=== PATIENT | female | born 1995 | race American Indian/Alaskan Native ===

== ENCOUNTER 2017-03-11 16:50 | Emergency (ER) | payer SELFPAY ==
[2017-03-11] MEDS ORDERED: TYLENOL ONE (16:57)
[2017-03-11] MEDS ORDERED: TYLENOL PO ONE (17:01)
--- NOTE | 2017-03-11 21:24 | Emergency Department Report ---
HPI - General Chief Complaint: Fever Time Seen by Provider: 03/11/17 20:58 - HPI HPI: Patient reports she has fever, body aches, chills and cough with congestion. She said this started yesterday morning. She was given Tylenol and triage area. Denies any chest pain. Denies any shortness of breath. Denies any nausea or vomiting. She says she took [id number]-neloapc cold and cough medication but is not helping. Generalized achiness 7 out of 10. Denies any headache or neck pain or stiffness. ED Past Medical Hx - Past Medical History Previous Medical History?: Yes Hx Asthma: Yes Additional medical history: anemia - Surgical History Past Surgical History?: No - Family History Family history: hypertension - Social History Smoking Status: Never Smoker Substance Use Type: None - Medications Home Medications: Home Medications Medication Instructions Recorded Confirmed Last Taken Type Pnv,Calcium 72/Iron,Carb/Folic 1 each PO QDAY #30 tablet 05/16/15 Unknown Rx [ Plus Iron Tablet] Ibuprofen [Motrin] 600 mg PO Q6H PRN 5 Days #20 tablet 03/11/17 Unknown Rx Oseltamivir [Tamiflu] 75 mg PO BID 5 Days #10 cap 03/11/17 Unknown Rx Promethazine HCl/Codeine 5 ml PO Q8H PRN 5 Days #75 ml 03/11/17 Unknown Rx [Promethazine-Codeine Syrup] ED Review of Systems ROS: Stated complaint: FLU SYMPTOMS Other details as noted in HPI Comment: All other systems reviewed and negative Constitutional: denies: chills, fever Eyes: denies: eye pain, eye discharge ENT: congestion. denies: ear pain, throat pain, dental pain, epistaxis Respiratory: cough. denies: orthopnea, shortness of breath, SOB with exertion, SOB at rest, stridor, wheezing Cardiovascular: denies: chest pain, palpitations, dyspnea on exertion, edema, syncope, paroxysmal nocturnal dyspnea Gastrointestinal: denies: abdominal pain, nausea, vomiting, diarrhea, constipation, hematemesis, melena, hematochezia Genitourinary: denies: urgency, dysuria, frequency, hematuria, discharge Musculoskeletal: myalgia. denies: back pain, joint swelling, arthralgia Skin: denies: rash Neurological: denies: headache, weakness, numbness, paresthesias, confusion, abnormal gait, vertigo Physical Exam - Physical Exam Vital Signs: Vital Signs 03/11/17 03/11/17 16:58 20:56 Temperature 102.9 F H 99.5 F Pulse Rate 115 H Respiratory 18 Rate Blood Pressure 105/71 O2 Sat by Pulse 98 Oximetry Vital Signs 03/11/17 03/11/17 03/11/17 16:58 20:56 22:20 Temperature 102.9 F H 99.5 F Pulse Rate 115 H 98 H Respiratory 18 100 H Rate Blood Pressure 105/71 O2 Sat by Pulse 98 Oximetry Vital Signs 03/11/17 03/11/17 03/11/17 16:58 20:56 22:20 Temperature 102.9 F H 99.5 F Pulse Rate 115 H 98 H Respiratory 18 Rate Blood Pressure 105/71 O2 Sat by Pulse 98 100 Oximetry General: This is 22-year-old patient well-nourished well-developed in no acute distress. Physical Exam: Head: Normocephalic atraumatic Ears:BIateral TM congested without erythema and loss of bony landmarks. Moses EAC with normal exam. No mastoid bone tenderness. Mouth: Moist, no pharyngeal erythema or exudate . No tonsillar erythema or exudate. UVULA midline and oral airways patent. No peritonsillar abscess Neck: Nontender to palpate, supple, normal range of motion. No adenopathy. No c- spine tenderness. Nose: Bilateral nasal mucosa congested with clear drainage. Maxillary and frontal sinuses non- tender to palpate. Eyes: Sclerae and conjunctiva without injection. Bilateral pupils equal and reactive to light. Bilateral lids are normal. Normal accommodation.BEOMI Lungs: Clear to auscultate bilaterally, no rhonchi wheezes or rales. Normal work of breathing and no chest wall tenderness CV: S1, S2. Sinus tachycardia at 1:15 Regular rhythm ,negative murmur. Capillary refill is less than 3 seconds Skin: Clean dry and intact, no rashes or lesions Psych: Normal mood and behavior ED Course Vital Signs 03/11/17 03/11/17 16:58 20:56 Temperature 102.9 F H 99.5 F Pulse Rate 115 H Respiratory 18 Rate Blood Pressure 105/71 O2 Sat by Pulse 98 Oximetry Vital Signs 03/11/17 03/11/17 03/11/17 16:58 20:56 22:20 Temperature 102.9 F H 99.5 F Pulse Rate 115 H 98 H Respiratory 18 100 H Rate Blood Pressure 105/71 O2 Sat by Pulse 98 Oximetry Vital Signs 03/11/17 03/11/17 03/11/17 16:58 20:56 22:20 Temperature 102.9 F H 99.5 F Pulse Rate 115 H 98 H Respiratory 18 Rate Blood Pressure 105/71 O2 Sat by Pulse 98 100 Oximetry - Reevaluation(s) Reevaluation #1: 03/11/17 22:24 Patient stable. She received Tylenol 975 mg in triage area and Motrin 800 mg in ED room. Patient tolerating oral liquids well. Heart rate and temperature has stabilized. ED Medical Decision Making - Lab Data Influenza A and B- - Radiology Data Radiology results: report reviewed, image reviewed interpreted by me: Chest x-ray revealed no acute cardiopulmonary findings. X-ray of the chest 2 view reveals no acute cardiopulmonary findings - Medical Decision Making ED course: Patient presented to the emergency room with flulike symptoms, influenza negative and chest x-ray reveals no acute cardiopulmonary findings. Patient given Tylenol 975 mg in triage and an additional Motrin 800 mg in ED room. She was orally hydrated and tolerated well. I discussed with patient that her flu test is negative and her x-ray does not show any abnormalities. I discussed with her although her flu test is negative she still has a viral infection and will need to be on Tamiflu. Patient voiced understanding of discharge instructions and treatment plan. Vital signs stable and temperature has stabilized. I discussed patient she needs to keep hydrated and take Motrin every 6 hours for the next 48 hours and then as needed. Patient was nondistended discharge instruction and treatment plan and need to follow-up with primary care physician in 2 days. Discharged home with prescription for Tamiflu, Motrin, and Phenergan and codeine cough syrup. Critical care attestation.: If time is entered above; I have spent that time in minutes in the direct care of this critically ill patient, excluding procedure time. ED Disposition Clinical Impression: Viral syndrome, Cough in adult patient, Fever in adult Disposition: DC-01 TO HOME OR SELFCARE Is pt being admited?: No Does the pt Need Aspirin: No Condition: Stable Instructions: Viral Syndrome (ED), Acute Cough (ED), Fever in Adults (ED) Additional Instructions: Please increase her fluid intake to 2-3 L of water and/or Gatorade per day. Flush nostrils with saline nasal spray Take medication as prescribed. Please do not drive or operate heavy machinery while taking in cough medicine as this medication will cause drowsiness. Please take Motrin every 6 hours for the next 48 hours and then as needed this will help with body aches and fever F/U with primary care physician as instructed Prescriptions: Ibuprofen [Motrin] 600 mg PO Q6H PRN 5 Days #20 tablet PRN Reason: Fever Oseltamivir [Tamiflu] 75 mg PO BID 5 Days #10 cap Promethazine HCl/Codeine [Promethazine-Codeine Syrup] 5 ml PO Q8H PRN 5 Days # 75 ml PRN Reason: COUGH AND NAUSEA Referrals: [facility] [Outside] - 03/13/17 Forms: Work/School Release Form(ED), Accompanied Note
[2017-03-11] MEDS ORDERED: MOTRIN PO ONE (21:26)
[2017-03-11] MEDS ORDERED: XOPENEX IH ONE (21:50)
--- NOTE | 2017-03-11 22:25 | XRay Report ---
FINAL REPORT PROCEDURE: XR CHEST ROUTINE 2V TECHNIQUE: PA and lateral chest radiographs were obtained. CPT 58238 HISTORY: sob, cough, fever COMPARISON: No prior studies are available for comparison. FINDINGS: Heart: Normal. Mediastinum/Vessels: Normal. Lungs/Pleural space: Normal. Bony thorax: No acute osseous abnormality. Other: IMPRESSION: Normal examination.
[2017-03-12 05:33] VITALS: BP 123/70
== END 2017-03-11 22:40 | disposition home or self-care (01) ==
LOC: ED 16:50
DX: B34.9 Viral infection, unspecified (principal)
CPT/HCPCS: 71046; 87400; 99283

== ENCOUNTER 2020-12-12 08:47 | Emergency (ER) | payer OTHER ==
--- NOTE | 2020-12-12 09:52 | Emergency Department Report ---
ED Back Pain/Injury HPI - General Chief Complaint: Abdominal Pain Stated Complaint: BACK AND SIDE PAIN Time Seen by Provider: 12/12/20 09:06 Source: patient Limitations: No Limitations - History of Present Illness Initial Comments: There is a pleasant 25-year-old female presents the emergency department chief complaint of low back pain and urinary frequency. She reports she has had some cough and congestion over the past few days and has been taking TheraFlu and Robitussin is unsure if she may be taking too much. She reports history of asthma and has had some cough and nasal congestion as well as wheezing. She denies any abdominal pain, hematuria, fever, chills, night sweats, headache, dizziness, or vision, nausea, vomit, diarrhea, chest pain, shortness of breath, saddle anesthesia, urinary or bowel incontinence. Her back pain is described as dull and aching rated as 5 out of 10 aggravated with movement or palpation of the low back. She denies any injuries. - Related Data Previous Rx's Medication Instructions Recorded Last Taken Type Pnv,Calcium 72/Iron,Carb/Folic 1 each PO QDAY #30 tablet 05/16/15 Unknown Rx [ Plus Iron Tablet] Ibuprofen [Motrin] 600 mg PO Q6H PRN 5 Days #20 tablet 03/11/17 Unknown Rx Oseltamivir [Tamiflu] 75 mg PO BID 5 Days #10 cap 03/11/17 Unknown Rx Promethazine HCl/Codeine 5 ml PO Q8H PRN 5 Days #75 ml 03/11/17 Unknown Rx [Promethazine-Codeine Syrup] Albuterol Sulfate [Proair 90 mcg IH ONCE #1 aer.pw.bas 12/12/20 Unknown Rx Digihaler] methylPREDNISolone [Medrol 4MG 4 mg PO ONCE #1 tab.ds.pk 12/12/20 Unknown Rx DOSEPAK (21 tabs)] Allergies Allergy/AdvReac Type Severity Reaction Status Date / Time ibuprofen AdvReac Rash Verified 12/12/20 09:01 ED Review of Systems ROS: Stated complaint: BACK AND SIDE PAIN Other details as noted in HPI Comment: All other systems reviewed and negative Constitutional: denies: chills, fever Eyes: denies: eye pain, eye discharge, vision change ENT: as per HPI, congestion. denies: ear pain, throat pain Respiratory: see HPI, cough, wheezing. denies: shortness of breath Cardiovascular: denies: chest pain, palpitations Endocrine: no symptoms reported Gastrointestinal: denies: abdominal pain, nausea, diarrhea Genitourinary: denies: urgency, dysuria, discharge Musculoskeletal: back pain. denies: joint swelling, arthralgia Skin: denies: rash, lesions Neurological: denies: headache, weakness, paresthesias Psychiatric: denies: anxiety, depression Hematological/Lymphatic: denies: easy bleeding, easy bruising ED Past Medical Hx - Past Medical History Hx Asthma: Yes Additional medical history: anemia - Social History Smoking Status: Never Smoker Substance Use Type: None - Medications Home Medications: Home Medications Medication Instructions Recorded Confirmed Last Taken Type Pnv,Calcium 72/Iron,Carb/Folic 1 each PO QDAY #30 tablet 05/16/15 Unknown Rx [ Plus Iron Tablet] Ibuprofen [Motrin] 600 mg PO Q6H PRN 5 Days #20 tablet 03/11/17 Unknown Rx Oseltamivir [Tamiflu] 75 mg PO BID 5 Days #10 cap 03/11/17 Unknown Rx Promethazine HCl/Codeine 5 ml PO Q8H PRN 5 Days #75 ml 03/11/17 Unknown Rx [Promethazine-Codeine Syrup] Albuterol Sulfate [Proair 90 mcg IH ONCE #1 aer.pw.bas 12/12/20 Unknown Rx Digihaler] methylPREDNISolone [Medrol 4MG 4 mg PO ONCE #1 tab.ds.pk 12/12/20 Unknown Rx DOSEPAK (21 tabs)] ED Physical Exam - General Limitations: No Limitations General appearance: alert, in no apparent distress - Head Head exam: Present: atraumatic, normocephalic - Eye Eye exam: Present: normal appearance, PERRL, EOMI Pupils: Present: normal accommodation - ENT ENT exam: Present: normal exam, normal orophraynx, mucous membranes moist - Neck Neck exam: Present: normal inspection, full ROM. Absent: tenderness, meningismus - Respiratory Respiratory exam: Present: normal lung sounds bilaterally, wheezes (Mild expiratory wheezing on the left). Absent: respiratory distress, rales, rhonchi, stridor, chest wall tenderness - Cardiovascular Cardiovascular Exam: Present: regular rate, normal rhythm, normal heart sounds. Absent: systolic murmur, diastolic murmur, rubs, gallop - GI/Abdominal GI/Abdominal exam: Present: soft, normal bowel sounds, other (Negative McBurney's point tenderness, no rebound or guarding, negative Roy sign). Absent: distended, tenderness, guarding, rebound, rigid - Extremities Exam Extremities exam: Present: normal inspection, full ROM, normal capillary refill. Absent: tenderness, calf tenderness (No posterior calf tenderness, no palpable cords, no lower extreme edema, negative Homans' sign bilaterally) - Back Exam Back exam: Present: normal inspection, full ROM, paraspinal tenderness (Mild tenderness to the lumbar bilateral paraspinal area with no midline tenderness of the cervical, thoracic or lumbar spine. Ambulatory with steady gait.). Absent: tenderness, CVA tenderness (R), CVA tenderness (L) - Neurological Exam Neurological exam: Present: alert, oriented X3, CN II-XII intact, normal gait - Psychiatric Psychiatric exam: Present: normal affect, normal mood - Skin Skin exam: Present: warm, dry, intact, normal color. Absent: rash ED Medical Decision Making - Medical Decision Making 25-year-old female presents emergency department chief complaint of lower back pain and urinary frequency. Urine was unremarkable. test is negative. No CVA tenderness on exam. Patient also has mild wheezing on exam with history of asthma. We will treat her with Medrol pack and inhalers recommended outpatient follow-up with her primary care doctor. Return to the ER with any change or worsening symptoms. Verbalized understand the diagnosis, treatment plan and follow-up instructions all of her questions were answered. PERC negative and low risk by Wells criteria. - Differential Diagnosis Asthma, bronchitis, UTI, pyelonephritis, nephrolithiasis Critical care attestation.: If time is entered above; I have spent that time in minutes in the direct care of this critically ill patient, excluding procedure time. ED Disposition Clinical Impression: Low back pain Qualifiers: Chronicity: acute Back pain laterality: unspecified Sciatica presence: without sciatica Qualified Code(s): M54.50 - Low back pain, unspecified Asthmatic bronchitis Qualifiers: Asthma severity: mild Asthma persistence: intermittent Asthma complication type : uncomplicated Qualified Code(s): J45.20 - Mild intermittent asthma, uncomplicated Disposition: 01 HOME / SELF CARE / HOMELESS Is pt being admited?: No Condition: Stable Instructions: Abdominal Pain (ED), Chronic Bronchitis (ED), Asthma, Adult, [id number] Prescriptions: methylPREDNISolone [Medrol 4MG DOSEPAK (21 tabs)] 4 mg PO ONCE #1 tab.ds.pk Albuterol Sulfate [Proair Digihaler] 90 mcg IH ONCE #1 aer.pw.bas Referrals: PRIMARY CARE, [Primary Care Provider] - 3-5 Days Time of Disposition: 10:29
[2020-12-12 10:13] LABS: HCG Qualitative,Urine Negative (Negative)
[2020-12-12 10:16] LABS: Bilirubin,Urine NEG (Negative); Blood,Urine NEG (Negative); Color,Urine Yellow (Yellow); Mucus,Urine FEW /HPF; Protein,Urine <15 mg/dL mg/dL (Negative); Urobilinogen,Urine < 2.0 mg/dL (<2.0)
[2020-12-12 11:11] VITALS: BP 114/67
== END 2020-12-12 11:06 | disposition home or self-care (01) ==
LOC: ED 08:47
DX: M54.50 Low back pain, unspecified (principal); J45.909 Unspecified asthma, uncomplicated; Z86.69 Personal history of other diseases of the nervous system and sense organs; Z79.899 Other long term (current) drug therapy; Z88.6 Allergy status to analgesic agent
CPT/HCPCS: 81001; 81025; 99283

== ENCOUNTER 2020-12-25 14:22 | Emergency (ER) | payer OTHER ==
[2020-12-25] MEDS ORDERED: ACETAMINOPHEN 325 MG TAB PO ONE (16:16)
--- NOTE | 2020-12-25 17:01 | Emergency Department Report ---
ED Lower Extremity HPI - General Chief Complaint: Extremity Injury, Lower Stated Complaint: LT ANKLE PAIN Time Seen by Provider: 12/25/20 16:06 Source: patient Mode of arrival: Wheelchair Limitations: No Limitations - History of Present Illness Initial Comments: Patient is a 25-year-old female presents emergency room complaints of a left ankle injury that occurred earlier today. She states that she accidentally tripped over a wooden piece and had a inversion injury of her left ankle. She states since then she has had to walk with a limp secondary to pain. She has associated left ankle pain and swelling. She denies ever injuring in the past. She denies any numbness or weakness. No past medical history. She states she is an intolerance to ibuprofen. She is unsure of her last menstrual cycle. - Related Data Previous Rx's Medication Instructions Recorded Last Taken Type Pnv,Calcium 72/Iron,Carb/Folic 1 each PO QDAY #30 tablet 05/16/15 Unknown Rx [ Plus Iron Tablet] Ibuprofen [Motrin] 600 mg PO Q6H PRN 5 Days #20 tablet 03/11/17 Unknown Rx Oseltamivir [Tamiflu] 75 mg PO BID 5 Days #10 cap 03/11/17 Unknown Rx Promethazine HCl/Codeine 5 ml PO Q8H PRN 5 Days #75 ml 03/11/17 Unknown Rx [Promethazine-Codeine Syrup] Albuterol Sulfate [Proair 90 mcg IH ONCE #1 aer.pw.bas 12/12/20 Unknown Rx Digihaler] methylPREDNISolone [Medrol 4MG 4 mg PO ONCE #1 tab.ds.pk 12/12/20 Unknown Rx DOSEPAK (21 tabs)] HYDROcodone/APAP 5-325 [[place] 1 each PO Q6HR PRN #12 tablet 12/25/20 Unknown Rx 5/325] Allergies Allergy/AdvReac Type Severity Reaction Status Date / Time ibuprofen AdvReac Rash Verified 12/12/20 09:01 ED Review of Systems ROS: Stated complaint: LT ANKLE PAIN Other details as noted in HPI Comment: All other systems reviewed and negative ED Past Medical Hx - Past Medical History Previous Medical History?: Yes Hx Asthma: Yes Additional medical history: anemia - Social History Smoking Status: Never Smoker Substance Use Type: None - Medications Home Medications: Home Medications Medication Instructions Recorded Confirmed Last Taken Type Pnv,Calcium 72/Iron,Carb/Folic 1 each PO QDAY #30 tablet 05/16/15 Unknown Rx [ Plus Iron Tablet] Ibuprofen [Motrin] 600 mg PO Q6H PRN 5 Days #20 tablet 03/11/17 Unknown Rx Oseltamivir [Tamiflu] 75 mg PO BID 5 Days #10 cap 03/11/17 Unknown Rx Promethazine HCl/Codeine 5 ml PO Q8H PRN 5 Days #75 ml 03/11/17 Unknown Rx [Promethazine-Codeine Syrup] Albuterol Sulfate [Proair 90 mcg IH ONCE #1 aer.pw.bas 12/12/20 Unknown Rx Digihaler] methylPREDNISolone [Medrol 4MG 4 mg PO ONCE #1 tab.ds.pk 12/12/20 Unknown Rx DOSEPAK (21 tabs)] HYDROcodone/APAP 5-325 [[place] 1 each PO Q6HR PRN #12 tablet 12/25/20 Unknown Rx 5/325] ED Physical Exam - General Limitations: No Limitations General appearance: alert, in no apparent distress - Head Head exam: Present: atraumatic, normocephalic - Eye Eye exam: Present: normal appearance - ENT ENT exam: Present: mucous membranes moist - Extremities Exam Extremities exam: Present: other (ttp and edema present to the left lateral an kle, decreased ROM of the ankle secondary to pain, no deformity, no ttp of the foot and toes, neurovascularly intact) - Neurological Exam Neurological exam: Present: alert, oriented X3 - Psychiatric Psychiatric exam: Present: normal affect, normal mood - Skin Skin exam: Present: warm, dry, intact ED Course Vital Signs 12/25/20 12/25/20 17:42 18:48 Pulse Rate 78 Respiratory 16 16 Rate Blood Pressure 138/82 [Right] O2 Sat by Pulse 99 Oximetry ED Lower Extremity MDM - Lab Data Vital Signs 12/25/20 12/25/20 17:42 18:48 Pulse Rate 78 Respiratory 16 16 Rate Blood Pressure 138/82 [Right] O2 Sat by Pulse 99 Oximetry - Radiology Data Radiology results: report reviewed Ordering Physician: TAMMY COTTON Date of Service: 12/25/20 Procedure(s): XR foot 3+V LT Accession Number(s): [id number] cc: TAMMY COTTON Fluoro Time In Minutes: XR foot 3+V LT INDICATION / CLINICAL INFORMATION: inversion injury left ankle. COMPARISON: None available. FINDINGS: BONES/JOINT(S): No acute fracture or subluxation. No significant degenerative changes. SOFT TISSUES: No significant abnormality. ADDITIONAL FINDINGS: None. Signer Name: Arnoldo Liu MD Signed: 12/25/2020 5:49 PM Workstation Name: [id number] Transcribed By: TRACI Dictated By: Arnoldo Liu MD Electronically Authenticated By: Arnoldo Liu MD Signed Date/Time: 12/25/201748 DD/ 48 TD/TT: Ordering Physician: TAMMY COTTON Date of Service: 12/25/20 Procedure(s): XR ankle 3+V LT Accession Number(s): [id number] cc: TAMMY COTTON Fluoro Time In Minutes: LEFT ANKLE 3 VIEW(S) INDICATION / CLINICAL INFORMATION: inversion injury left ankle COMPARISON: None available. FINDINGS: BONES / JOINT(S): There is a transverse type fracture of distal fibular tip. No widening of syndesmosis. SOFT TISSUES: Soft tissue swelling around the ankle. ADDITIONAL FINDINGS: None. Signer Name: Jam Dorado MD Signed: 12/25/2020 5:14 PM Workstation Name: [id number] Transcribed By: KALANI Dictated By: JAM DORADO MD Electronically Authenticated By: JAM DORADO MD Signed Date/Time: 12/25/201713 DD/ 08 TD/TT: - Medical Decision Making Patient is a 25-year-old female presents emergency room complaints of a left ankle injury that occurred earlier today. She states that she accidentally tripped over a wooden piece and had a inversion injury of her left ankle. She states since then she has had to walk with a limp secondary to pain. She has associated left ankle pain and swelling. She denies ever injuring in the past. She denies any numbness or weakness. No past medical history. She states she is an intolerance to ibuprofen. She is unsure of her last menstrual cycle. On exam:ttp and edema present to the left lateral ankle, decreased ROM of the ankle secondary to pain, no deformity, no ttp of the foot and toes, neurovascularly intact. x-ray left ankle: BONES / JOINT(S): There is a transverse type fracture of distal fibular tip. No widening of syndesmosis. SOFT TISSUES: Soft tissue swelling around the ankle. ADDITIONAL FINDINGS: None. X-ray left foot: BONES/JOINT(S): No acute fracture or subluxation. No significant degenerative changes. SOFT TISSUES: No significant abnormality. ADDITIONAL FINDINGS: None. Discussed results with patient and the importance of orthopedic follow-up. Patient placed in Ross splint and given crutches by EMT and remain neurovascularly intact. Patient given prescription for medication. Advised patient Take medication as prescribed as needed. Follow-up with orthopedic doctor. Do not bear weight on the leg. Return to emergency room for any worsening. Critical care attestation.: If time is entered above; I have spent that time in minutes in the direct care of this critically ill patient, excluding procedure time. ED Disposition Clinical Impression: Ankle fracture Qualifiers: Encounter type: initial encounter Fracture type: closed Laterality: left Qualified Code(s): S82.892A - Other fracture of left lower leg, initial encounter for closed fracture Disposition: 01 HOME / SELF CARE / HOMELESS Is pt being admited?: No Does the pt Need Aspirin: No Condition: Stable Instructions: Ankle Fracture, [id number] Additional Instructions: Take medication as prescribed as needed. Follow-up with orthopedic doctor. Do not bear weight on the leg. Return to emergency room for any worsening. Prescriptions: HYDROcodone/APAP 5-325 [[place] 5/325] 1 each PO Q6HR PRN #12 tablet PRN Reason: Pain , Severe (7-10) Referrals: GREY CAIN MD [Primary Care Provider] - 2-3 Days WESTLEY TSE MD [Staff Physician] - 2-3 Days [facility] [Provider Group] - 2-3 Days Time of Disposition: 18:09 Print Language: SLOVAK
--- NOTE | 2020-12-25 17:19 | XRay Report ---
LEFT ANKLE 3 VIEW(S) INDICATION / CLINICAL INFORMATION: inversion injury left ankle COMPARISON: None available. FINDINGS: BONES / JOINT(S): There is a transverse type fracture of distal fibular tip. No widening of syndesmos is. SOFT TISSUES: Soft tissue swelling around the ankle. ADDITIONAL FINDINGS: None. Signer Name: Jam Dorado MD Signed: 12/25/2020 5:14 PM Workstation Name: [id number]
--- NOTE | 2020-12-25 17:53 | XRay Report ---
XR foot 3+V LT INDICATION / CLINICAL INFORMATION: inversion injury left ankle. COMPARISON: None available. FINDINGS: BONES/JOINT(S): No acute fracture or subluxation. No significant degenerative changes. SOFT TISSUES: No significant abnormality. ADDITIONAL FINDINGS: None. Signer Name: Arnoldo Liu MD Signed: 12/25/2020 5:49 PM Workstation Name: [id number]
[2020-12-25 18:53] VITALS: BP 138/82
== END 2020-12-25 18:48 | disposition home or self-care (01) ==
LOC: ED 14:22
DX: S82.832A Other fracture of upper and lower end of left fibula, initial encounter for closed fracture (principal); W01.0XXA Fall on same level from slipping, tripping and stumbling without subsequent striking against object, initial encounter; Y93.89 Activity, other specified; Y92.89 Other specified places as the place of occurrence of the external cause; Y99.8 Other external cause status
CPT/HCPCS: 99283